=== PATIENT | female | born 1975 | race Caucasian/White ===

== ENCOUNTER 2024-08-30 20:29 | Emergency (ER) | payer BC, SELFPAY ==
[2024-08-30 20:33] VITALS: BP 166/107
[2024-08-30] MEDS: ADACEL 0.5 ML IM (21:50)
--- NOTE | 2024-08-30 22:50 | ED.GENMED ---
History of Present Illness
General
Chief Complaint: Skin Surface Trauma
Time Seen by Provider: 08/30/24 22:06
History of Present Illness
History of Present Illness:
49-year-old female without significant past medical history presenting with laceration to the left fifth digit. Reports that she was cleaning dishes prior to arrival, cut her finger on glass and had difficulty stopping the bleeding. She did not
stay glue over the surface, with relief. Denies numbness or tingling. Tetanus unknown. Denies any additional injuries. Denies fever. Denies additional acute medical complaint
Past History
Past History
ED Past Medical History: Other (Status post , previous mastitis )
Social History
Tobacco: Non-smoker
Alcohol: None
Family History
Family History: Diabetes and CAD
Phy Exam
Physical Exam
Physical Exam:
General: Well-appearing, no clinical signs of dehydration
HEENT: protecting airway
Neck: appears supple
CV: Normal heart rate
Resp: No accessory muscle use, no increased work of breathing
Abd: no distension
Extremities: Subcutaneous laceration to the left fifth digit at the palmar aspect. Irregular shaped flap. No neurovascular compromise
Neuro: alert, no focal neurologic deficit
: deferred
Rectal: deferred
Psych: Normal affect
Skin: Intact
Course
Orders/Labs/Results
Orders:
Orders
08/30/24 20:38
Finger(s)/Thumb 2 View Lt [CR Finger(s)/thumb Min 2 Vw Lt] Urgent
Comment:
Reason For Exam: cut with broken glass R/O foreign body
Indicate Which Finger:: Little Finger
08/30/24 20:41
Tetanus/Diphth/Acelpertussis [Adacel] 0.5 ml IM .ONCE ONE
Vital Signs
Initial and Last Documented VS:
Initial Vital Signs
Temp Pulse Resp BP Pulse Ox
98.0 F 77 18 166/107 98
08/30/24 20:33 08/30/24 20:33 08/30/24 20:33 08/30/24 20:33 08/30/24 20:33
Last Documented Vital Signs
Temp Pulse Resp BP Pulse Ox
98.0 F 76 18 132/78 99
08/30/24 20:33 08/30/24 23:11 08/30/24 23:11 08/30/24 23:11 08/30/24 23:11
Procedures
Laceration Closure
Left Fifth Finger(s):
Status of Wound: clean
Size of Wound in cm: 4
Description of Wound Edges: flap-poorly vascularized
Preparation: cleaned with saline
Anesthesia: 1% Lidocaine
Type of Closure: single layer closure
Skin Closure Material: 5-0 nylon
Number of sutures: 4
MDM/Problems Addressed
MDM/Problems Addressed:
49-year-old female without significant past medical history presenting for laceration to the left fifth digit. Vital signs significant for high blood pressure, however patient. She is on arrival.
On exam patient is well-appearing, no acute distress or discomfort. Laceration is clean, no concern for contamination or infection. No neurovascular compromise. Tetanus status updated. Laceration repair. Please see procedure note. Otherwise
feel stable for discharge with interval follow-up with primary care doctor for suture removal. Return precautions discussed with patient verbalized understanding
*Critical Care Note
Total Time (30-74mins, 75-104mins- exclusive of procedures): Not Applicable
ED Attending Note
-
Portions of this chart may have been created with voice recognition software.� Occasional wrong word or��sound alike� substitutions may have occurred due to the inherent limitations of voice recognition software.
Discharge Plan
Departure
Patient Disposition: Home (Routine Discharge)
Date of Disposition: 08/30/24
Time of Disposition: 22:54
Patient with high blood pressure during this ER visit?: Yes
Condition: Good
Discharge Problem:
Finger laceration
Instructions: Laceration Repair With Stitches (DC), BLOOD PRESSURE
Prescriptions:
No Action
cetirizine 10 MG tablet
10 mg PO DAILY
sulfamethoxazole-trimethoprim 800 MG/160 MG tablet
2 tab PO BID
prednisone 20 MG tablet
60 mg PO DAILY Qty: 60 0RF
Activity Restrictions/Additional Instructions:
You were seen in the emergency department for a laceration
You had sutures placed in your finger, 4 sutures. The sutures will need to be removed in 5 to 7 days. Return to the ER with any increased swelling or redness to the finger with abnormal drainage or development of fever
Please follow-up closely with your primary care physician.
Return to the emergency department for any worsening of your symptoms, or any development of chest pain, difficulty breathing, abdominal pain with persistent vomiting and inability to tolerate food or liquid by mouth (concern for dehydration),
weakness, headache or confusion, fever greater than 100.4, or any additional symptoms that are concerning to you.
Thank you for choosing [facility].
Interventions
Interventions:
*Risk Screen - Suicide Last Done: 08/30/24 23:11
*General Assessment Last Done: 08/30/24 22:26
*Neglect/Abuse Screening Last Done: 08/30/24 22:26
ED- Fall Risk Assessment Last Done: 08/30/24 22:26
*ED COVID-19 Vaccine History Last Done: 08/30/24 22:26
*Nursing Disposition Last Done: 08/30/24 23:11
ED-Skin Assessment Last Done: 08/30/24 22:26
Discharge Date and Time
Discharge Date/Time: 08/30/24 23:12
Print Language: BENINESE
[2024-08-30 23:11] VITALS: BP 132/78
== END 2024-08-30 23:12 | disposition home or self-care (01) ==
LOC: EMR 20:29
PROVIDERS: EMERGENCY PHYSICIAN Student in an Organized Health Care Education/Training Program; FAMILY PHYSICIAN Family Medicine
DX: S61.217A Laceration without foreign body of left little finger without damage to nail, initial encounter (principal); W25.XXXA Contact with sharp glass, initial encounter; Z82.49 Family history of ischemic heart disease and other diseases of the circulatory system; Z83.3 Family history of diabetes mellitus
CPT/HCPCS: 99283; 12002; 73140; 90715